=== PATIENT | female | born 2000 | race Caucasian/White ===

== ENCOUNTER 2022-10-07 15:22 | Inpatient (IN) | payer MEDICAID ==
[~2022-10-07] VITALS: Ht 150 cm; Wt 93.9 kg
[2022-10-07] MEDS ORDERED: NALOXONE HCL 0.4 MG/ML 1ML VIAL IM PRN (19:45)
[2022-10-07] MEDS ORDERED: LACTATED RINGERS 1,000 ML IV SCH (19:45)
[2022-10-07] MEDS ORDERED: CARBOPROST TROMETHAMINE 250 MCG/ML AMPUL IM PRN (19:45)
[2022-10-07] MEDS ORDERED: METHYLERGONOVINE MALEATE 0.2 MG/ML IM PRN (19:45)
[2022-10-07] MEDS: LACTATED RINGERS 1,000 ML IV SCH (21:37)
[2022-10-07 23:19] LABS: INR 0.9; PARTIAL THROMBOPLASTIN TIME 26.8 sec (23.4-31.0); PROTHROMBIN TIME 9.8 sec (9.6-11.0)
[2022-10-07 23:29] LABS: BASOPHILS % 0.3 % (0.0-2.0); EOSINOPHILS % 0.6 % (0.0-5.0); HEMATOCRIT. 32.7 % (36.0-48.0); HEMOGLOBIN. 10.9 g/dL (12.0-16.0); LYMPHOCYTES % 23.4 % (20.0-50.0); MEAN CORPUSCULAR HEMOGLOBIN 28.8 pg (28.0-32.0); MEAN CORPUSCULAR VOLUME 86.1 fL (81.0-99.0); MEAN PLATELET VOLUME 9.9 fl (7.4-10.4); MONOCYTES % 5.7 % (2.0-8.0); PLATELET 287 x1000/uL (130-400); RED BLOOD CELL COUNT 3.79 mill/uL (4.2-5.4); RED CELL DISTRIBUTION WIDTH 14.5 % (11.6-14.6)
[2022-10-07 23:41] LABS: CLARITY URINE CLEAR (CLEAR); COLOR URINE YELLOW (YELLOW); KETONES URINE NEGATIVE (NEGATIVE); LEUKOCYTE ESTERASE URINE NEGATIVE (NEGATIVE); NITRITE URINE NEGATIVE (NEGATIVE); OCCULT BLOOD URINE TRACE (NEGATIVE); PH URINE 6.5 (4.5-8.0); PROTEIN URINE NEGATIVE (NEGATIVE); SPECIFIC GRAVITY URINE 1.022 (1.005-1.030); UROBILINOGEN URINE 0.2 E.U./dL (0.2-1.0)
[2022-10-08] MEDS: DOCUSATE SODIUM 100MG CAPSULE PO SCH (00:17)
[2022-10-08] MEDS: SIMETHICONE 80MG TABLET CHEW PO SCH ×2 (00:17→17:14)
[2022-10-08 01:07] LABS: *AMPHETAMINES SCREEN URINE NEGATIVE (NEGATIVE); *BARBITURATES SCREEN URINE NEGATIVE (NEGATIVE); *BENZODIAZEPINES SCREEN URINE NEGATIVE (NEGATIVE); *COCAINE SCREEN URINE NEGATIVE (NEGATIVE); CANNABINOID URINE SCREEN NEGATIVE (NEGATIVE); METHADONE URINE SCREEN NEGATIVE (NEGATIVE); OPIATES URINE SCREEN NEGATIVE (NEGATIVE); PHENCYCLIDINE URINE SCREEN NEGATIVE (NEGATIVE)
[2022-10-08] MEDS: LACTATED RINGERS 1,000 ML IV SCH ×2 (02:07→06:54)
[2022-10-08] MEDS ORDERED: ROPIVACAINE HCL/PF EPIDURAL 200 ML EPI ONE (02:42)
[2022-10-08] MEDS ORDERED: ROPIVACAINE HCL/PF EPIDURAL 200 ML EPI SCH (03:15)
[2022-10-08 03:56] LABS: HEPATITIS B SURFACE ANTIGEN NEGATIVE
[2022-10-08] MEDS: OXYTOCIN 30 UNITS/500ML NS PMX 500 ML IV SCH ×2 (11:11→11:24)
[2022-10-08] MEDS: IBUPROFEN 800MG TABLET PO PRN ×2 (13:15→21:47)
[2022-10-08 13:20] VITALS: BP 116/56
[2022-10-08] MEDS ORDERED: RHO(D) IMMUNE GLOBULIN 300 MCG/SYR IM PRN (13:30)
[2022-10-08] MEDS ORDERED: HEMORRHOIDAL SUPP PR PRN (13:30)
[2022-10-08] MEDS ORDERED: BENZOCAINE/LANOLIN/ALOE VERA SPRAY TOP PRN (13:30)
[2022-10-08] MEDS ORDERED: IBUPROFEN 400MG TABLET PO PRN (13:30)
[2022-10-08] MEDS ORDERED: GLYCERIN/WITCH HAZEL LEAF MEDICATED PAD TOP PRN (13:30)
[2022-10-08] MEDS ORDERED: DIPHENHYDRAMINE 25MG CAPSULE PO PRN (13:30)
[2022-10-08] MEDS ORDERED: ACETAMINOPHEN WITH CODEINE 300/30MG TABLET PO PRN (13:30)
[2022-10-08] MEDS ORDERED: IBUPROFEN 800MG TABLET PO PRN (13:30)
[2022-10-08] MEDS ORDERED: BISACODYL 10MG SUPP PR PRN (13:30)
[2022-10-08] MEDS ORDERED: LANOLIN OINT 7GM TUBE TOP PRN (13:30)
[2022-10-08] MEDS ORDERED: OXYTOCIN 30 UNITS/500ML NS PMX 500 ML IV SCH (13:30)
[2022-10-08] MEDS ORDERED: NALOXONE HCL 0.4MG/ML VIAL IV PRN (13:45)
[2022-10-08 20:00] VITALS: BP 97/55
[2022-10-09 04:00] VITALS: BP 90/54
[2022-10-09] MEDS: IBUPROFEN 800MG TABLET PO PRN ×3 (05:03→21:33)
[2022-10-09 07:05] LABS: BASOPHILS % 0.3 % (0.0-2.0); HEMATOCRIT. 33.3 % (36.0-48.0); LYMPHOCYTES % 21.9 % (20.0-50.0); MEAN CORPUSCULAR HEMOGLOBIN 28.5 pg (28.0-32.0); MEAN CORPUSCULAR VOLUME 86.6 fL (81.0-99.0); MEAN PLATELET VOLUME 9.4 fl (7.4-10.4); MONOCYTES % 6.1 % (2.0-8.0); NEUTROPHILS % 70.7 % (40.0-76.0); PLATELET 267 x1000/uL (130-400); RED BLOOD CELL COUNT 3.85 mill/uL (4.2-5.4); RED CELL DISTRIBUTION WIDTH 14.7 % (11.6-14.6)
[2022-10-09 07:40] VITALS: BP 91/49
[2022-10-09] MEDS: PRENATAL VIT/FE FUMARATE/FA TABLET PO SCH (09:14)
[2022-10-09] MEDS: FERROUS SULFATE 325MG TABLET PO SCH ×2 (09:14→15:50)
[2022-10-09] MEDS: SIMETHICONE 80MG TABLET CHEW PO SCH ×2 (09:14→22:19)
[2022-10-09 16:00] VITALS: BP 112/61
[2022-10-09 19:30] VITALS: BP 102/55
[2022-10-09] MEDS: DOCUSATE SODIUM 100MG CAPSULE PO SCH (22:18)
[2022-10-10 04:00] VITALS: BP 110/72
[2022-10-10] MEDS: IBUPROFEN 800MG TABLET PO PRN ×2 (05:15→10:45)
[2022-10-10 10:16] VITALS: BP 98/61
[2022-10-10] MEDS: PRENATAL VIT/FE FUMARATE/FA TABLET PO SCH (10:45)
[2022-10-10] MEDS: FERROUS SULFATE 325MG TABLET PO SCH (10:45)
[2022-10-10] MEDS: SIMETHICONE 80MG TABLET CHEW PO SCH (10:46)
== END 2022-10-10 11:30 | disposition home or self-care (01) | DRG 560 ==
LOC: 8 EST A/PP 15:22 → OBSVTOIN 15:22 → 8EST NSY 10-08 03:43 → 8 EST LDRP 10-08 03:59 → 8EST 10-08 13:37
PROVIDERS: ADMIT Obstetrics & Gynecology; ATTEND Obstetrics & Gynecology
PROC: 10E0XZZ Delivery of Products of Conception, External Approach (ICD-10-PCS; principal; 2022-10-08)
PROC: 3E0R3BZ Introduction of Anesthetic Agent into Spinal Canal, Percutaneous Approach (ICD-10-PCS; 2022-10-08)
PROC: 00HU33Z Insertion of Infusion Device into Spinal Canal, Percutaneous Approach (ICD-10-PCS; 2022-10-08)
PROC: 0HQ9XZZ Repair Perineum Skin, External Approach (ICD-10-PCS; 2022-10-08)
DX: O70.0 First degree perineal laceration during delivery (principal); Z37.0 Single live birth; Z20.822 Contact with and (suspected) exposure to COVID-19; Z86.73 Personal history of transient ischemic attack (TIA), and cerebral infarction without residual deficits; Z3A.39 39 weeks gestation of pregnancy
CPT/HCPCS: 36415; 76805; 76818; 80305; 81003; 85025; 86592; 86703; 86762; 86850; 86900; 87340; 87426; 99281; G0378; J2795; J7120; A4315; J2590